=== PATIENT | male | born 1980 | race Caucasian/White ===

== ENCOUNTER 2019-07-31 06:47 | Emergency (ER) | payer MEDICAID, SELFPAY ==
[2019-07-31 06:48] VITALS: BP 124/82; PULSE 76; RESP 20; TEMP 36.6; O2SAT 98; BMI 29.7
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
[2019-07-31] MEDS: Tetracaine 0.5% Ophthalmic Bottle OPHTHALMIC (07:41)
[2019-07-31] MEDS: Fluorescein 1 MG STRIP 1 STRIP OPHTHALMIC (07:41)
[2019-07-31] MEDS: Erythromycin Base 1 OPTH.TUBE 1 APPLIC RIGHT EYE (08:12)
== END 2019-07-31 08:12 | disposition home or self-care (01) ==
PROVIDERS: Emergency Provider Emergency Medicine
DX: S05.01XA Injury of conjunctiva and corneal abrasion without foreign body, right eye, initial encounter (principal); S00.83XA Contusion of other part of head, initial encounter; Y04.8XXA Assault by other bodily force, initial encounter; Z72.0 Tobacco use
CPT/HCPCS: 70486; 99283

== ENCOUNTER 2020-04-02 15:50 | Emergency (ER) | payer MEDICAID, SELFPAY ==
[2020-04-02 15:51] VITALS: BP 120/86; PULSE 66; RESP 18; TEMP 36.2; O2SAT 100; BMI 26.4
--- NOTE | 2020-04-02 17:00 | ED.VISSUMM ---
- ER Visit Summary Date of Service: 04/02/20 Chief Complaint: Abdominal pain History of Present Illness: The patient is a 40 M who presents with abdominal pain that began today. Patient states he ate very spicy peanuts today and started having severe abdominal pain after that. Patient states pain is over the epigastric area and bilateral upper quadrants. Patient admits to nausea with an episode of vomiting. Patient denies any hematemesis or coffee-ground emesis. Patient states he tried to take Pepto-Bismol and drink milk but this has not helped with his pain. Patient states he also took Tums with no improvement. Patient denies any diarrhea, melena, or hematochezia. Patient does admit to some dysuria but denies any hematuria. Patient denies any fevers or chills.. Physical Examination: Vital signs are stable. Patient is afebrile. Patient is in no acute distress. Oral mucosa is pink and moist. Neck is supple. Trachea is midline. There is no JVD. Heart was regular rate and rhythm. Lungs are clear and equal bilaterally. Abdomen is soft. Bowel sounds are normal. There is upper abdominal tenderness. There is no rebound or guarding noted. Cranial nerves II through XII are intact. There are no focal motor or sensory deficits noted. Test Results: CBC shows a leukocytosis of 16.5. Comprehensive metabolic profile was within normal limits. Urinalysis was normal. Because of the leukocytosis, I ordered a CT scan of the abdomen and pelvis. Patient refused this. Emergency Department Course and Treatment: Patient was given IV fluids, Zofran, Bentyl, Pepcid, and a GI cocktail. Patient was feeling better on reevaluation. Patient was advised of his findings. Patient was given a prescription for Prilosec. Patient was instructed to follow-up with his primary care physician in 5 to 7 days. Patient understood and was agreeable with the plan. All questions were answered. Disposition: Discharge home Impression: 1. Abdominal pain 2. Gastritis This note was generated with [employer] dictation software. It may contain incorrect words, spelling, and punctuation that were not noted in review of the chart prior to signing ED Disposition - Plan for ED Patient: Disposition: Home or Assisted Living Diagnosis: Abdominal pain, Gastritis Instructions: ED PEPTIC ULCER vs GASTRITIS Prescriptions: Omeprazole [Prilosec] 20 mg PO DAILY #30 cap Prescription Printed Referrals: Care Physician,Charo Primary [Primary Care Provider] - 5-7 Days
[2020-04-02] MEDS: Ondansetron 4 MG/2 ML Vial IV (17:33)
[2020-04-02] MEDS: 0.9% Normal Saline 1,000 ML 1000 ML IV (17:33)
[2020-04-02 17:54] VITALS: BP 122/61; PULSE 71
[2020-04-02 17:55] LABS: Bacteria 0 SEEN /hpf (None Seen); Mucous, Urine 0 SEEN /hpf (<or=2+); Red Blood Cells-Urine 0 SEEN /hpf (0-5); Squamous Epithelial Cells - UA 0 SEEN /hpf (0-5); White Blood Cells 0 SEEN /hpf (0-5)
[2020-04-02 17:55] LABS: Absolute Lymphocyte Count 1.27 X10^3/uL (0.83-4.51); Absolute Neutrophil Count 14.5 X10^3/uL (2.0-7.7); Basophil# 0.02 X10^3/uL; Basophil% 0.1 % (0-1); Eosinophil# 0.02 X10^3/uL; Eosinophils% 0.1 % (0-5); Hematocrit 49.9 % (40-54); Hemoglobin 16.9 g/dL (13.0-16.5); Lymphocyte # 1.27 X10^3/ul (4.0); Lymphocyte % 7.7 % (19-41); Mean Corp Hgb Conc 33.9 g/dL (32-36); Mean Corpuscular Volume 91.6 fL (80-94); Mean Platelet Vol. 10.3 fl (6.2-12.0); Monocyte# 0.67 X10^3/uL; Monocyte% 4.1 % (0-10); NRBC Flagged by Analyzer 0 % (0-5); Neutrophil # 14.45 X10^3/uL (2.7-7.7); Neutrophil % 87.5 % (47-70); Platelet Count 205 K/mm3 (150-450); RBC Distribution Width CV 12.3 % (11.6-14.6); RBC Distribution Width SD 41.1 fl (35.1-43.9); Red Blood Count 5.45 M/mm3 (4.6-6.2); White Blood Count 16.5 K/mm3 (4.4-11.0)
[2020-04-02 18:08] LABS: Color, Urine Yellow (Yellow); Glucose, Dipstick Normal (Normal); Ketone-Dipstick Negative (Negative); Leukocyte Esterase-Dipstick Negative /ul (Negative); Nitrite-Dipstick Negative (Negative); Occult Blood-Urine Negative /ul (Negative); Protein-Dipstick Negative (Negative); Urine Bilirubin Dipstick Negative (Negative); Urine Clarity Clear (Clear); Urine Urobilinogen Normal (Normal)
[2020-04-02 18:13] LABS: ALB/GLOB Ratio 1.2 RATIO (0.9-2.4); AST(SGOT) 29 U/L (15-37); Alanine Aminotransfer ALT/SGPT 27 U/L (16-61); Alkaline Phosphatase 49 U/L (45-117); Anion Gap 4 (5-15); BUN 13 mg/dL (7-18); BUN/Creat Ratio 10.9 RATIO (10-20); Calcium,Total 9.6 mg/dL (8.5-10.1); Chloride 106 mmol/L (98-107); Creatinine, Serum 1.19 mg/dL (0.70-1.30); EST Glomerular Filtration Rate 72 mL/min (>60); Est Glom Filt Rate - Afr Amer 87 mL/min (>60); Estimated Creatinine Clearance 87.89 ml/min; Globulin 3.4 g/dL (2.2-4.2); Glucose 105 mg/dL (74-106); Lipase 131 U/L (73-393); Potassium 4.8 mmol/L (3.5-5.1); Protein, Total 7.4 g/dL (6.4-8.2); Sodium Level 137 mmol/L (136-145)
--- NOTE | 2020-04-02 18:20 | CM.ED ---
Social Work Consult: No PCP Informant: Self Referral Met with patient in room. Introduced self and social media job titles role. Patient agreeable to speaking with this social media job titles. This social media job titles broached topic of PCP for patient. Patient confirms to not have a PCP. Patient open to this social media job titles providing patient with list of in-network providers for patient. Patient denies any community concerns. Patient reports to have housing and transportation and denies community needs. Pelon Mcgee MSW, JOHN[place]
[2020-04-02] MEDS: Mag Hydrox/Al Hydrox/Simeth 30 ML UDC PO (18:56)
[2020-04-02] MEDS: Dicyclomine 20 MG/2 ML Vial IM (18:57)
[2020-04-02 19:03] VITALS: BP 130/78; PULSE 79; RESP 16; O2SAT 100
[2020-04-02] MEDS: Famotidine 200 MG/20 ML MDV 20 MG in 0.9% Normal Saline (Pres. free 8 ML 300 MG IV (19:23)
[2020-04-02] MEDS: Morphine 2 MG/ML Syringe SC (19:45)
== END 2020-04-02 20:19 | disposition home or self-care (01) ==
PROVIDERS: Emergency Provider Emergency Medicine
DX: R10.13 Epigastric pain (principal); K29.70 Gastritis, unspecified, without bleeding; F17.200 Nicotine dependence, unspecified, uncomplicated
CPT/HCPCS: 80053; 81001; 83690; 85025; 96361; 96372; 96374; 96375; 99282; J7030; A4216; J2405; J3490